=== PATIENT | female | born 1970 | race Hispanic/Latino ===

== ENCOUNTER 2016-07-22 18:50 | Emergency (ER) ==
[2016-07-22] MEDS ORDERED: ASPIRIN PO STA (19:23)
[2016-07-22] MEDS ORDERED: NITROGLYCERIN TOP ONE (19:23)
[2016-07-22] MEDS ORDERED: NITROGLYCERIN SL PRN (19:23)
[2016-07-22] MEDS ORDERED: PREDNISONE PO ONE (19:40)
[2016-07-22] MEDS ORDERED: TORADOL IM ONE (19:40)
[2016-07-22] MEDS ORDERED: PERCOCET-10 PO ONE (19:40)
--- NOTE | 2016-07-22 19:45 | PROVIDER DOCUMENTATION ---
HPI-Chest Pain - General Source: patient - History of Present Illness-CP Location: reports: other (left arms) Chest Pain Radiation: reports: other (left anterior chest) Quality of Pain: reports: aching Severity in ED: mild Onset/Duration: 1 week ago Timing: intermittent Modifying Factors: worse with: movement Associated Symptoms: reports: shortness of breath Aspirin Treatment Today: 325 mg x 1, provided by ED Similar Symptoms Previously?: Yes (1 year ago ) Recently Seen Here or By Another Healthcare Provider: No <Amaris Kruse - Last Filed: 07/22/16 19:40> <Cipriano Martinez - Last Filed: 07/22/16 21:06> - General Chief Complaint: Chest Pain Stated Complaint: CP Time Seen by Provider: 07/22/16 19:36 Allergies/Adverse Reactions: Patient Allergies Allergy/AdvReac Type Severity Reaction Status Date / Time No Known Allergies Allergy Verified 01/10/16 18:20 Home Medications: Home Medication List Medication Instructions Recorded Confirmed Last Taken Type Acetaminophen/Diphenhydramine 1 each PO Q6-8H PRN PRN #30 tablet 01/10/16 Unknown Rx [Percogesic 325-12.5 mg Tablet] Ibuprofen [Motrin] 800 mg PO Q8H PRN PRN #20 tablet 07/01/16 Unknown Rx Sulfamethoxazole/Trimethoprim 1 each PO BID #10 tablet 07/01/16 Unknown Rx [Bactrim Ds Tablet] Amlodipine Besylate [Norvasc] 10 mg PO HS #30 tablet 07/22/16 Unknown Rx Lisinopril 20 mg PO DAILY #30 tablet 07/22/16 Unknown Rx Methylprednisolone [Medrol Dosepak] 4 mg PO DIRECTED #1 package 07/22/16 Unknown Rx Tramadol [Ultram] 50 mg PO TID #60 tablet 07/22/16 Unknown Rx - History of Present Illness-CP Nature of Presenting Problem: 46 year old F presents to the ED with a cc of left anterior chest pain starting in left arm and radiating to left chest wall. Pt states that it began 1 week ago but became worse yesterday with SOB. 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 PT states that she had the same a year ago and was prescribed an anti-inflammatory. (Amaris Kruse) Review of Systems - Adult - REVIEW OF SYSTEMS - ADULT Constitutional: denies: chills, fever Eyes: reports: no symptoms reported Ears, Nose, Mouth & Throat: reports: no symptoms reported Cardiovascular: reports: chest pain. denies: palpitations Respiratory: reports: shortness of breath. denies: cough Gastrointestinal: denies: nausea, vomiting Genitourinary: reports: no symptoms reported Musculoskeletal: reports: no symptoms reported Integumentary: reports: no symptoms reported Neurological: reports: no symptoms reported Psychiatric: reports: no symptoms reported Endocrine: reports: no symptoms reported Hematologic/Lymphatic: reports: no symptoms reported Allergic/Immunologic: reports: no symptoms reported All Other Systems: Reviewed and Negative <Amaris Kruse - Last Filed: 07/22/16 19:40> Past History - Adult - PAST MEDICAL HISTORY-ADULT Review of Records: reports: Nursing Assessment Review, Medications Reviewed Major Childhood Illnesses: reports: denies history Cardiovascular: reports: denies history Respiratory: reports: asthma Gastrointestinal: reports: denies history Obstetrical/Gynecological: reports: denies history Genitourinary: reports: denies history Musculoskeletal: reports: arthritis Neurological: reports: denies history Endocrine/Immune: reports: denies history Other Conditions: reports: denies history - PRIOR SURGERIES/PROCEDURES Surgical/Procedure History: reports: BTL, tonsillectomy - IMMUNIZATION STATUS Childhood Immunizations: See Nurse Assessment Flu Vaccine: See Nurse Assessment - SOCIAL HISTORY Smoking: non-smoker Substance Use: none/never Alcohol Use Frequency: never <Amaris Kruse - Last Filed: 07/22/16 19:40> Physical Exam-General - PHYSICAL EXAM-ADULT Initial Vital Signs Reviewed: Yes - CONSTITUTIONAL General Appearance: appears well, alert, no apparent distress - RESPIRATORY Respiratory: lungs clear, normal breath sounds, other (left anterior chest with ROM with left arm) - CARDIOVASCULAR Cardiovascular: normal peripheral pulses, regular rate, rhythm, no edema - GASTROINTESTINAL (ABDOMEN) Abdominal Exam: non tender, soft - SKIN Integumentary: normal color, normal turgor, warm/dry - PSYCHIATRIC Psych/Mental Status: normal mood/affect, normal thought content, normal thought process, oriented x 3 <Amaris Kruse - Last Filed: 07/22/16 19:40> Progress - EKG 1 Time of EKG reading by physician:: 18:59 EKG Read and Signed by:: Cipriano Martinez EKG Interpretation (*Must complete 3 of following elements*): Normal Rate: 98 Rhythm: NSR Orient: normal <Amaris Kruse - Last Filed: 07/22/16 19:40> Departure <Amaris Kruse - Last Filed: 07/22/16 19:40> - Departure Time of Disposition Order: 20:14 Certified Medical Emergency: Emergent <JuanYeSrinivas - Last Filed: 07/22/16 21:06> - Departure DIAGNOSIS: Left-sided chest wall pain, Muscle strain of forearm, HTN (hypertension) with goal to be determined Disposition: HOME 01 Condition: Stable Additional Instructions: ED Follow Up Instructions: You have been treated by a care provider in the Emergency Department. These instructions are being provided to you so you can have an understanding of how to care for yourself upon discharge. Upon discharge from the Emergency Department, you are responsible for making arrangements for follow-up care by a physician of your choice. Take all prescribed medications as directed. Return to the Emergency Department immediately for any new or worsening symptoms. You may call the Physician Referral phone number at [phone] to obtain a list of Physicians who are taking new patients. Prescriptions: Lisinopril 20 mg PO DAILY #30 tablet Methylprednisolone [Medrol Dosepak] 4 mg PO DIRECTED #1 package Amlodipine Besylate [Norvasc] 10 mg PO HS #30 tablet Tramadol [Ultram] 50 mg PO TID #60 tablet Referrals: None,PCP [Primary Care Provider] - Wilian Morrison MD [STAFF PHYSICIAN] - Instructions: Chest Wall Pain, [id number], Muscle Strain, [id number], Hypertension, [id number] Physician Attestation
[2016-07-22 20:09] LABS: MANUAL DIFF NEEDED? NO
[2016-07-22] MEDS ORDERED: CATAPRES PO ONE (20:13)
[2016-07-22 20:24] LABS: BASO% 0.3 % (0.0-0.8); EOS# 0.54 X1000 (0.0-0.7); EOS% 7.4 % (0.0-10.0); HEMATOCRIT 41.8 % (37.0-47.0); HEMOGLOBIN 13.7 g/dL (12.0-16.0); LYMPH# 2.62 X1000 (1.2-3.4); LYMPH% 35.8 % (20.5-51.1); MCH 28.4 PG (27-31); MCHC 32.8 g/dL (33-37); MCV 86.5 FL (81-99); MONO% 6.8 % (1.7-9.3); MPV 10.7 FL (7.4-10.4); NEUT% 49.7 % (42.2-75.2); PLT 305 X1000 (130-400); RBC 4.83 XMIL (4.2-5.4)
[2016-07-22 20:40] LABS: AGAP 11; ALBUMIN 4.3 g/dL (3.5-5.0); ALKALINE PHOSPHATASE 101 U/L (32-104); BUN 9 mg/dL (8-22); CALCIUM 9.1 mg/dL (8.8-10.2); CHLORIDE 101 mmol/L (98-107); CK PROFILE 82 U/L (24-173); COSMO 277; GOT 24 U/L (10-30); GPT 28 U/L (10-36); MAGNESIUM 2.3 mg/dL (1.5-2.7); POTASSIUM 3.8 mmol/L (3.5-5.1); SODIUM 139 mmol/L (136-145); TCO2 27 mmol/L (25-35); TOTAL PROTEIN 8.3 g/dL (6.3-8.3)
[2016-07-22 20:43] LABS: INR 0.95
[2016-07-22 20:46] LABS: PROTIME 9.7 Seconds (9.2-11.7); PTT 24.8 Seconds (22.0-36.0)
[2016-07-22 21:21] VITALS: BP 140/90
--- NOTE | 2016-07-23 07:57 | Diag Imaging Result Document ---
PROCEDURE NAME: CHEST-2 VIEWS - 07/22/2016 FRONTAL AND LATERAL CHEST, TWO VIEWS: COMPARISON: 01/10/2016. FINDINGS: The lungs are well expanded. The heart is not enlarged. The vessels are not distended. No pneumonia. No pleural effusions. No free air beneath the diaphragm. IMPRESSION: No acute abnormality.
--- NOTE | 2016-07-23 09:18 | EKG Report ---
Test Performed on : 07/22/2016 6:59:43 PM Test Reason : CP Blood Pressure : / mmHG Vent. Rate : 098 BPM Atrial Rate : 098 BPM P-R Int : 160 ms QRS Dur : 074 ms QT Int : 356 ms P-R-T Axes : 050 038 047 degrees QTc Int : 454 ms Normal sinus rhythm. Normal ECG When compared with ECG of 10-JAN-2016 18:15, No significant change was found Unconfirmed Result
== END 2016-07-22 21:21 | disposition home or self-care (01) ==
LOC: ED 18:50
DX: S56.912A Strain of unspecified muscles, fascia and tendons at forearm level, left arm, initial encounter (principal); R07.89 Other chest pain; I10 Essential (primary) hypertension; M79.602 Pain in left arm; R06.02 Shortness of breath; M19.90 Unspecified osteoarthritis, unspecified site
CPT/HCPCS: 71020; 80053; 82550; 83735; 83880; 84484; 85025; 85610; 85730; 93005; J1885; J7512